=== PATIENT | male | born 2000 | race Asian ===

== ENCOUNTER 2024-09-18 06:31 | Outpatient (REF) | payer OTHER, SELFPAY ==
--- NOTE | ~2024-09-18 | US_ITS ---
CLINICAL HISTORY: RUQ PAIN US abdomen complete Comparison: None Findings: The pancreas is obscured. The aorta and inferior vena cava are normal caliber. The liver is normal in size and Increased in echotexture There is no intrahepatic bile duct dilatation. The common duct is 3.8 mm in diameter. The gallbladder is normal. There is no sonographic Fierro sign. The main portal vein is antegrade. The right kidney is 10 cm in length. The left kidney is 10.3 cm in length. The spleen is normal. No ascites. IMPRESSION: 1. Hepatic steatosis. This document has been electronically signed by: Waqar Blancas MD on 09/19/2024 12:19:24
== END 2024-09-18 06:32 | disposition home or self-care (01) ==
LOC: HO.UMASIMG 06:31
PROVIDERS: Visit Provider Family Medicine
DX: R10.11 Right upper quadrant pain (principal); K21.9 Gastro-esophageal reflux disease without esophagitis
CPT/HCPCS: 76700

== ENCOUNTER → 2024-09-18 10:30 | Outpatient (BNV) | payer OTHER, SELFPAY | PROVIDERS: Visit Provider Radiology Diagnostic Radiology | DX: K76.0 Fatty (change of) liver, not elsewhere classified (principal) | CPT/HCPCS: 76700 ==